=== PATIENT | female | born 1960 | race Caucasian/White ===

== ENCOUNTER 2018-03-31 06:56 | Day surgery (SDC) | payer BC, MEDICARE ==
[~2018-03-31 06:56] MED LIST: ACETAMINOPHEN 1,000 MG/100 ML BTL IV ONE; VANCOMYCIN HCL 1,000 MG in DEXTROSE 5 % IN WATER 250 ML IVPB ONE
[2018-03-31] MEDS ORDERED: HYDROCODONE/APAP 7.5/325MG TABLET PO ONE (06:57)
[2018-03-31] MEDS ORDERED: SEVOFLURANE 250 ML INH ONE (06:57)
[2018-03-31] MEDS ORDERED: BUPIVACAINE 0.5% W/EPI MPF 30 ML VIAL IVP ONE (06:57)
[2018-03-31] MEDS ORDERED: KETOROLAC 30 MG/ML VIAL IVP ONE (06:57)
[2018-03-31] MEDS ORDERED: LIDOCAINE 2% MDV (20MG/ML) 20ML VIAL IV ONE (06:57)
[2018-03-31] MEDS ORDERED: METHYLPREDNISOLONE 40MG/VIAL IM ONE (06:57)
[2018-03-31] MEDS ORDERED: PROPOFOL 10 MG/ML VIAL IV ONE (06:57)
--- NOTE | 2018-04-01 14:52 | Operative Note ---
DATE OF SURGERY: 03/31/18 PREOPERATIVE DIAGNOSIS: INTERNAL DERANGEMENT, LEFT KNEE. POSTOPERATIVE DIAGNOSES: 1. GRADE 3 CHONDROMALACIA MEDIAL FEMORAL CONDYLE. 2. COMPLEX SPLIT TEAR INVOLVING THE POSTERIOR HORN OF THE MEDIAL MENISCUS. PROCEDURE: 1. LEFT KNEE ARTHROSCOPY WITH PARTIAL MEDIAL MENISCECTOMY 2. LEFT KNEE ARTHROSCOPY WITH DEBRIDEMENT OF THE MEDIAL FEMORAL CONDYLE AND CHONDROPLASTY. STAFF SURGEON: VIRGIL CORREA M.D. ANESTHESIA: GENERAL. PREPARATION: CHLORAPREP. INDIVIDUAL CONSIDERATIONS: NONE. PROCEDURE: The patient was taken to the Operating Room and placed supine on the operating table. She had a successful induction of a general anesthetic. Her left lower extremity was prepped and draped in the usual fashion. The patient had a superolateral inflow cannula placed. The skin was infiltrated with 0.5% Marcaine with Epinephrine prior. The knee was then inflated with normal saline. An inferior medial and an inferior lateral portal were made in a similar fashion. The arthroscope was introduced through the inferior lateral portal up in the pouch. The patellofemoral compartment was normal. No significant loose bodies or synovitis was seen in the pouch or either gutter. Medially, she had grade 3 change, about the size of a quarter, over the medial femoral about 45 degrees of flexion, which was smoothed off with a shaver, some peeling cartilage in the periphery. She had a complex split tear involving the posterior horn of the medial meniscus, basically most of this was debrided out with basket forceps and a shaver to a stable rim. In the notch, the cruciates were normal and lateral compartment structures were normal. The knee was then irrigated out with saline to remove loose floating debris. The portals were closed with anastasia and 20 mL of 0.25% plain Marcaine along with 4 mg of Morphine and 40 mg DepoMedrol all were injected into the knee and a sterile Bulkee compressive dressing was applied. The patient tolerated the procedures well. Needle and sponge counts were correct. Estimated blood loss was minimal. She was taken back to Recovery in good condition. There were no complications. Dr. Eason JOB NUMBER: [id number] [facility]
== END 2018-03-31 10:45 | disposition home or self-care (01) ==
LOC: SUR 06:56
PROVIDERS: ATTEND Orthopaedic Surgery
DX: S83.232A Complex tear of medial meniscus, current injury, left knee, initial encounter (principal); M94.262 Chondromalacia, left knee; M06.9 Rheumatoid arthritis, unspecified; K52.9 Noninfective gastroenteritis and colitis, unspecified; B02.9 Zoster without complications; J45.909 Unspecified asthma, uncomplicated; J44.9 Chronic obstructive pulmonary disease, unspecified
CPT/HCPCS: 29881; 01400; J1885; J3370; J1030; J7060

== ENCOUNTER 2018-06-09 06:54 | Day surgery (SDC) | payer BC, MEDICARE ==
[2018-06-09] MEDS ORDERED: MECLIZINE 25 MG TABLET PO ONE (06:55)
[2018-06-09] MEDS ORDERED: ONDANSETRON HCL IV 4 MG/2 ML VIAL IVP ONE (06:55)
[2018-06-09] MEDS ORDERED: FAMOTIDINE 20MG TABLET PO ONE (06:55)
[2018-06-09] MEDS ORDERED: SEVOFLURANE 250 ML INH ONE ×2 (06:55)
[2018-06-09] MEDS ORDERED: METOCLOPRAMIDE 10 MG TABLET PO ONE (06:55)
[2018-06-09] MEDS ORDERED: BUPIVACAINE 0.5% W/EPI MPF 30 ML VIAL IVP ONE (06:55)
[2018-06-09] MEDS ORDERED: PROPOFOL 10 MG/ML VIAL IV ONE ×2 (06:55)
[2018-06-09] MEDS ORDERED: LIDOCAINE 2% MDV (20MG/ML) 20ML VIAL IV ONE ×2 (06:55)
[2018-06-09] MEDS ORDERED: CLINDAMYCIN 600MG/50ML PREMIX 600 MG/50 ML BAG IVPB ONE (06:55)
[2018-06-09] MEDS ORDERED: METHYLPREDNISOLONE 40MG/VIAL IM ONE (06:55)
[2018-06-09] MEDS ORDERED: MORPHINE SULFATE 4 MG/ML VIAL ONE (07:49)
--- NOTE | 2018-06-09 13:00 | Operative Note ---
DATE OF SURGERY: 06/09/2018 Surgeon: Myron Fraser MD PREOPERATIVE DIAGNOSIS: Internal derangement right knee. POSTOPERATIVE DIAGNOSES: 1. Large medial plica. 2. Grade 3 chondromalacia medial femoral condyle. 3. Complex flap tear involving the posterior horn of the medial meniscus. OPERATION: 1. Right knee arthroscopy with partial medial meniscectomy. 2. Right knee arthroscopy with resection of plica. 3. Right knee arthroscopy with chondroplasty medial femoral condyle. Anesthesia: General. PREPARATION: Chloraprep. INDIVIDUAL CONSIDERATIONS: None. PROCEDURE: The patient was taken to the operating room and placed supine on the operating room table. She had a successful induction with general anesthetic. Her right lower extremity was prepped and draped in the usual fashion. A blood-tinged effusion was drained. The knee was inflated with normal saline after an in-flow cannula was placed. The knee was then inflated with normal saline. An inferior medial and inferior lateral port were made in a similar fashion, after infiltrating with Marcaine 0.5% with epinephrine. The arthroscope was introduced through the inferolateral portal up into the pouch. The patellofemoral compartment was essentially normal with some soft change, but nothing to debride. There was a very large medial plica which was debrided with the shaver medially. She had grade 3 changes on the medial femoral condyle from 45 to 90 and this was smoothed with a shaver. She had a complex split tear involving the posterior horn of the medial meniscus. This is debrided back for a stable rim with basket forceps and a shaver. The medial and anterior horns were intact. The cruciate ligaments were normal. The lateral compartments and structures were normal. The knee was irrigated out with saline to include floating debris and closed with anastasia and 20 mL of 0.5% Marcaine with epinephrine, along with 4 mg of morphine and 40 mg of Depomedrol were injected into the knee and a sterile, bulky, compressive dressing was applied. The patient tolerated the procedure well. The needle and sponge counts were correct. Estimated blood loss was minimal. She was taken back to recovery in good condition. There were no complications. [facility]
== END 2018-06-09 10:00 | disposition home or self-care (01) ==
LOC: SUR 06:54
PROVIDERS: ATTEND Orthopaedic Surgery
DX: S83.231A Complex tear of medial meniscus, current injury, right knee, initial encounter (principal); M67.51 Plica syndrome, right knee; M94.261 Chondromalacia, right knee; M06.9 Rheumatoid arthritis, unspecified; K52.9 Noninfective gastroenteritis and colitis, unspecified; J45.909 Unspecified asthma, uncomplicated; G47.33 Obstructive sleep apnea (adult) (pediatric)
CPT/HCPCS: J1030; J2270; J2405; J7060

== ENCOUNTER 2018-11-16 09:02 | Day surgery (SDC) | payer BC, MEDICARE ==
[~2018-11-16 09:02] MED LIST changes: +CELECOXIB 100 MG CAPSULE PO ONE; +MECLIZINE 25 MG TABLET PO ONE; +METOCLOPRAMIDE 10 MG TABLET PO ONE; +PANTOPRAZOLE SODIUM 40 MG TABLET PO ONE; +VANCOMYCIN HCL 1,000 MG in 0.9 % SODIUM CHLORIDE 250ML 250 ML IVPB ONE
[2018-11-16] MEDS ORDERED: ROPIVACAINE HCL (NAROPIN) /PF 5MG/ML 20ML VIAL IV ONE (09:03)
[2018-11-16] MEDS ORDERED: ONDANSETRON HCL IV 4 MG/2 ML VIAL IVP ONE (09:03)
[2018-11-16] MEDS ORDERED: DEXAMETHASONE 4 MG/ML 1ML VIAL IVP ONE ×2 (09:03)
[2018-11-16] MEDS ORDERED: PROPOFOL 10 MG/ML VIAL IV ONE (09:03)
[2018-11-16] MEDS ORDERED: HYDROMORPHONE HCL 2 MG/ML VIAL IV ONE (09:03)
[2018-11-16] MEDS ORDERED: FAMOTIDINE 20MG TABLET PO ONE (09:03)
[2018-11-16] MEDS ORDERED: LEVOFLOXACIN 500MG IVPB 500 MG/100 ML BAG IVPB ONE (09:03)
[2018-11-16] MEDS ORDERED: TRANEXAMIC ACID 1,000 MG/10 ML ML IV ONE (09:03)
[2018-11-16] MEDS ORDERED: METOCLOPRAMIDE 10 MG TABLET PO ONE (09:03)
[2018-11-16] MEDS ORDERED: LIDOCAINE 2% MDV (20MG/ML) 20ML VIAL IV ONE (09:03)
[2018-11-16] MEDS ORDERED: MIDAZOLAM HCL 2MG/2ML VIAL IV ONE (09:03)
[2018-11-16 10:01] LABS: ABO GROUP O; ANTIBODY SCREEN NEGATIVE (NEGATIVE); RH TYPE POSITIVE
[2018-11-16] MEDS ORDERED: BUPIVACAINE 0.5% W/EPI MPF 30 ML VIAL SQ ONE (12:12)
[2018-11-16] MEDS ORDERED: RINGERS SOLUTION,LACTATED 800 ML IV ONE (12:54)
[2018-11-16] MEDS ORDERED: HYDROMORPHONE HCL 2 MG/ML VIAL IM PRN (12:59)
[2018-11-16] MEDS ORDERED: DIPHENHYDRAMINE HCL 25 MG CAPSULE PO PRN (12:59)
[2018-11-16] MEDS ORDERED: HYDROCODONE/APAP 10/325 TABLET PO PRN (12:59)
[2018-11-16] MEDS ORDERED: ONDANSETRON HCL IV 4 MG/2 ML VIAL IVP PRN (12:59)
[2018-11-16] MEDS ORDERED: ACETAMINOPHEN 325 MG TAB PO PRN (12:59)
[2018-11-16] MEDS ORDERED: ZOLPIDEM TARTRATE 5 MG TABLET PO PRN (12:59)
[2018-11-16] MEDS ORDERED: NALOXONE 0.4 MG/1 ML VIAL IVP PRN (12:59)
[2018-11-16] MEDS ORDERED: ACETAMINOPHEN W/ CODEINE 300MG/60MG TABLET PO PRN ×2 (12:59)
[2018-11-16] MEDS ORDERED: BISACODYL 10 MG SUPP RC PRN (12:59)
[2018-11-16] MEDS ORDERED: KETOROLAC 30 MG/ML VIAL IVP PRN ×2 (12:59)
[2018-11-16] MEDS ORDERED: MAGNESIUM HYDROXIDE 30 ML UDC PO PRN (12:59)
[2018-11-16] MEDS ORDERED: AL HYDROX/MAG HYDROX 30ML UD PO PRN (12:59)
[2018-11-16] MEDS ORDERED: OXYCODONE HCL 5 MG TABLET PO PRN (13:01)
[2018-11-16] MEDS ORDERED: ALBUTEROL INH PRN (14:55)
--- NOTE | 2018-11-16 16:16 | Rehab Evaluation ---
Patient Information - Patient Information Diagnosis: R knee DJD Ordered Treatment: PT Evaluate and Treat Status: Initial Evaluation Surgery: Yes (R TKA) Date of Surgery: 11/16/18 Past Medical/Surgical Hx: PAST MEDICAL/SURGICAL HISTORY Past Surgical History BILAT KNEE SCOPES shoulder sx partial hyst D and C's back sx's x's 2 lumbar c scopes EGD's PMH - Respiratory Hx Respiratory Disorders Yes Hx Asthma Yes Hx Chronic Obstructive Yes: no recent hospitalizations Pulmonary Disease (COPD) Hx Sleep Apnea Yes Hx of CPAP Yes Hx of SOB Yes: with exertion PMH - Cardiovascular Hx Cardiovascular Disorders Yes Hx Edema Yes: PT STATES "ALL OVER" Exercise Tolerance Fair Hx of Migraines Yes: occassionally PMH - Neuro Hx Neurological Disorders Yes Hx Neuropathy Yes: hands Hx of Neuromuscular Disease Yes: had a tell her she has MS Comment: shingles left side of waist onset 1 month ago still has one spot oozing PMH - GI Hx Gastrointestinal Disorders Yes Hx Abdominal Pain Yes Hx Gastroesophageal Reflux Yes Hx Irritable Bowel Yes: colitis Hx Nausea/Vomiting Yes PMH - Hx Genitourinary Disorders Yes Hx Bladder Problem Yes: stress incontinence Comment: s/p hyst PMH - Endocrine Hx Endocrine Disorders No PMH - Musculoskeletal Hx Musculoskeletal Disorders Yes Hx Arthritis Yes: RA OA PMH - Psych Hx Psychiatric Problems No Hx Anxiety Yes: VERY AGITATED ABOUT SURGERY Comment: very fragmented conversation PMH - Hematology/Oncology Hx Hematology/Oncology Yes Disorders Hx Anemia Yes: in past Premorbid Status: Detail (The patient ambulated distances occasionally with 4 wheeled walker.) Social History: Detail (The patient lives with spouse in a one story house with custom steps at the enterance(wide enough to accomodate a walker). The bathroom is equipped with a tub/solar energy installation manager combination and grab bars and an elevated toilet. The patient has a front wheeled walker, 4 wheeled walker, single point cane with wide base of support and shower bench.) Precautions: [place], Fall - Time With Patient Total Time Spent With Patient (Min): 30 Treatment Procedures: Detail (Initial Evaluation, Gait training.) Subjective Information - Subjective Information Per Patient (The patient has no complaints of pain.) Objective Data - Mental Status Patient Orientation: Oriented x3 - Visual Perception Appears within normal limits for therapeutic activities - ROM Not within normal limits (The patient's R knee AROM is limited as to be expected following surgery. The patient's other LE strength was WFL.) - Strength/Tone Not within normal limits (The patient's R LE strength was not tested s/p surgery however was functional ie: patient was able to lift R LE in and out of bed. The patient's L LE strength was functional.) - Bed Mobility Independent (The patient was independent with supine to and from sit transfer and scooting up in bed.) - Transfers Independent (The patient was independent with sit to and from stand transfer.) - Balance Balance Sitting: Good Balance Standing: Good - Sensation Intact - Gait Detail (The patient ambulated with front wheeled walker a distance of 400 feet x 1 WBAT on the R LE with supervision for safety only.) Therapy Assessment - Therapy Assessment Detail (The patient was independent with bed mobility, transfers and required supervision for safety. Feel the patient will progress well with mobility. The PT evaluation complexity is rated as low due to few personal factors and stable condition.) Problem List - Problem List Physical Therapy Problem List: Detail (1)Decreased R knee AROM as to be expected following surgery 2) Decreaed R LE strength) Goals - Goals Physical Therapy Goals: 1) The patient will be independent with TKA HEP. 2) The patient will demonstrate good understanding of proper stairclimbing technique. Prognosis - Prognosis Good Plan - Plan Physical Therapy Plan: PT 1-2 sessions for gait training and instruction in TKA HEP.
[2018-11-16] MEDS: POTASSIUM CHLORIDE/D5-0.9%NACL 20 MEQ/1,000 ML BAG IV SCH (17:41)
[2018-11-16] MEDS ORDERED: PATIENT OWN MED: GABAPENTIN 300 MG PO SCH ×2 (18:00→22:00)
[2018-11-16] MEDS: HYDROCODONE/APAP 10/325 TABLET PO PRN ×2 (19:04→23:50)
[2018-11-16] MEDS: TRAMADOL HCL 50 MG TABLET PO PRN (21:49)
[2018-11-16] MEDS: DOCUSATE SODIUM 100 MG CAPSULE PO SCH (21:49)
[2018-11-16] MEDS ORDERED: DULERA INH SCH (22:00)
[2018-11-16] MEDS: MUCINEX D PO SCH (22:01)
[2018-11-16] MEDS ORDERED: VANCOMYCIN HCL 1,000 MG in DEXTROSE 5 % IN WATER 250 ML IVPB SCH ×2 (23:00)
[2018-11-17] MEDS: POTASSIUM CHLORIDE/D5-0.9%NACL 20 MEQ/1,000 ML BAG IV SCH ×2 (03:29→06:24)
[2018-11-17] MEDS: HYDROCODONE/APAP 10/325 TABLET PO PRN ×2 (04:40→09:26)
[2018-11-17] MEDS: TRAMADOL HCL 50 MG TABLET PO PRN (06:21)
[2018-11-17 06:31] LABS: HEMATOCRIT 35.1 % (35.0-47.0); HEMOGLOBIN 11.2 gm/dl (11.6-16.0)
[2018-11-17 06:44] LABS: BLOOD UREA NITROGEN 10 mg/dL (6-20); CREATININE 0.6 mg/dL (0.5-0.9); EST GLOMERULAR FILTRATION RATE > 60 mL/min; GLUCOSE,RANDOM 94 mg/dL (74-109)
[2018-11-17] MEDS ORDERED: NEXIUM 20 MG PO SCH (07:00)
--- NOTE | 2018-11-17 08:31 | Operative Note ---
DATE OF SURGERY: 11/16/2018 PREOPERATIVE DIAGNOSIS: Rheumatoid with degenerative changes of the right knee. POSTOPERATIVE DIAGNOSIS: Rheumatoid with degenerative changes of the right knee. OPERATION: Cemented right total knee arthroplasty using Holloway and Nephew Kendy II components with a size 5 Oxinium femur, a size 4 stem tibia baseplate, a 9 mm lipped highly crosslinked tibial insert, and a 32 mm all plastic patella. Staff Surgeon: Myron Fraser MD Anesthesia: General. PREPARATION: Chloraprep. INDIVIDUAL CONSIDERATIONS: None. PROCEDURE: The patient was taken to the operating room, placed supine on the operating room table. She had a successful induction of general anesthetic. The right lower extremity was prepped and draped in the usual fashion. The limb was elevated and tourniquet was inflated to 300 mmHg. The patient had a midline approach to the knee. Sharp dissection carried down through skin and subcutaneous tissue. Small veins were coagulated with a Bovie. A medial arthrotomy was performed. The patella was everted and the knee was flexed. Fat pad was resected, ACL was sacrificed, provisional anterior meniscectomies were performed. The capsule was released from the medial proximal tibia. The patient had synovitis which was debrided in the pouch but what appeared to be more degenerative changes in the medial patellofemoral compartment. The initial femoral agricultural aircraft pilot hole was then made freehand. The intramedullary femoral cutting jig was placed. It was cut in 7.0 degrees of valgus and adjusted for rotation and secured with pins for a 10 mm resection. The initial transverse cut was then made. The skin guide was placed in the anterior and posterior agricultural aircraft pilot holes. It was found that a size 5 would be appropriate. The anterior and posterior cuts followed by chamfer cuts were made. Osteophytes removed, and a size 5 trial was placed and found to fit well. The tibia was brought forward, and the remainder of the meniscal remnants removed with a Bovie. The extraarticular tibial cutting jig was placed. It was cut in neutral with a 3-degree AP slope. It was set for a 9 mm resection keyed off the high lateral side and secured with pins. When cutting the tibia, care was taken to preserve the PCL insertion on the tibia. After removing medial osteophytes, I could fit a size 4. It was adjusted for rotation and secured with pins. With a 9 mm trial and a size 4 baseplate trial and femoral trial, there was excellent motion and stability, ligamentous balance, rotation alignment were normal. The femoral agricultural aircraft pilot holes were impacted and the tri-flange tibial stamp was impacted, and these trial components were removed. The patient had a thick patella, and roughly 9 mm of bone was removed freehand. I could easily fit a 32 patella. The 3 agricultural aircraft pilot holes were drilled. Tourniquet was let down briefly to get bleeders posteriorly and placed back up again. The knee was then copiously irrigated out with pulsatile Betadine and saline to remove any visual or palpable debris. Bony surfaces were then dried. A size 4 stem tibia baseplate was cemented into place followed by impaction of the 9 mm lipped highly crosslinked tibial insert followed by cementing in the size 5 Oxinium femur followed by cementing in the 32 mm patella. The implant surfaces were compressed, excess cement was removed, and after the cement had set, there was excellent motion and stability, ligamentous balance, rotation alignment, and patellofemoral tracking were normal. No lateral release was required. After irrigation, tourniquet was again let down. Hemostasis was obtained with a Bovie. The skin, subcutaneous tissue, and periosteum were then infiltrated with 30 mL of 0.5% Marcaine with epinephrine. The capsule was then closed with a running #2 quill, subcu was closed in layers with running 0 quill, skin was closed with anastasia. Then 20 mL of saline was mixed with 1 g of tranexamic acid and it was injected into the knee through a sterile 18-gauge needle, and a sterile bulky compressive KYLAH-type dressing was applied. The patient tolerated the procedure well. Needle and sponge counts were correct. Estimated blood loss was minimal, and she was taken back to recovery in good condition. There were no complications. JACE
--- NOTE | 2018-11-17 08:53 | Rehab Evaluation ---
Patient Information - Patient Information Diagnosis: R knee DJD Ordered Treatment: OT Evaluate and Treat Status: Initial Evaluation Surgery: Yes (R TKA) Date of Surgery: 11/16/18 Past Medical/Surgical Hx: PAST MEDICAL/SURGICAL HISTORY Past Surgical History BILAT KNEE SCOPES shoulder sx partial hyst D and C's back sx's x's 2 lumbar c scopes EGD's PMH - Respiratory Hx Respiratory Disorders Yes Hx Asthma Yes Hx Chronic Obstructive Yes: no recent hospitalizations Pulmonary Disease (COPD) Hx Sleep Apnea Yes Hx of CPAP Yes Hx of SOB Yes: with exertion PMH - Cardiovascular Hx Cardiovascular Disorders Yes Hx Edema Yes: PT STATES "ALL OVER" Exercise Tolerance Fair Hx of Migraines Yes: occassionally PMH - Neuro Hx Neurological Disorders Yes Hx Neuropathy Yes: hands Hx of Neuromuscular Disease Yes: had a tell her she has MS Comment: shingles left side of waist onset 1 month ago still has one spot oozing PMH - GI Hx Gastrointestinal Disorders Yes Hx Abdominal Pain Yes Hx Gastroesophageal Reflux Yes Hx Irritable Bowel Yes: colitis Hx Nausea/Vomiting Yes PMH - Hx Genitourinary Disorders Yes Hx Bladder Problem Yes: stress incontinence Comment: s/p hyst PMH - Endocrine Hx Endocrine Disorders No PMH - Musculoskeletal Hx Musculoskeletal Disorders Yes Hx Arthritis Yes: RA OA PMH - Psych Hx Psychiatric Problems No Hx Anxiety Yes: VERY AGITATED ABOUT SURGERY Comment: very fragmented conversation PMH - Hematology/Oncology Hx Hematology/Oncology Yes Disorders Hx Anemia Yes: in past Premorbid Status: Detail (The patient ambulated distances occasionally with 4 wheeled walker. Per Pt, spouse performs all IADLs, including meal prep, laundry , and home mgmt.) Social History: Detail (The patient lives with spouse in a one story house with custom steps at the enterance(wide enough to accomodate a walker) (vs. ramp per Pt report). The bathroom is equipped with a tub/shower combination and grab bars and an elevated toilet with grab bar. The patient has a front wheeled walker, 4 wheeled walker, single point cane with wide base of support and shower bench.) Precautions: [place], Fall, Other (WBAT R LE) - Time With Patient Total Time Spent With Patient (Min): 20 Treatment Procedures: Detail (OT eval: low complexity) Subjective Information - Subjective Information Per Patient Objective Data - Pain Pain Present: Yes Pain Scale Used: Numeric (1 - 10) (8/10 R LE) - Mental Status Patient Orientation: Oriented x3 - Visual Perception Appears within normal limits for therapeutic activities - ROM Within normal limits (Pt reports previous R shoulder Sx, however ROM and strength appears WNL) - Strength/Tone Within normal limits - Coordination Appears within normal limits for therapeutic activities - Bed Mobility Independent (supine > sit) - Transfers Independent (sit >< stand from low surfaces) - Balance Balance Sitting: Good Balance Standing: Good - Sensation Intact - Gait Detail (Functional ambulation within bedroom with FWW with supervision.) - ADL's/IADL's Detail (OT educated Pt on adaptive technique for LB dressing, Pt demos modified independence to don pants, socks, and shoes. OT educ. Pt on kitchen and laundry safety at home, Pt verbalizes understanding.) Therapy Assessment - Therapy Assessment Detail (Pt demos safety and modified independence with LB dressing and verbalizes safe technique for safety with home tasks.) Problem List - Problem List Physical Therapy Problem List: Detail (1)Decreased R knee AROM as to be expected following surgery 2) Decreaed R LE strength) Occupational Therapy Problem List: Detail (No inpatient OT needs identified. DC inpatient OT services.) Goals - Goals Physical Therapy Goals: 1) The patient will be independent with TKA HEP. 2) The patient will demonstrate good understanding of proper stairclimbing technique. Occupational Therapy Goals: No further OT inpatient needs/goals identified. Prognosis - Prognosis Good Plan - Plan Physical Therapy Plan: PT 1-2 sessions for gait training and instruction in TKA HEP. Occupational Therapy Plan: No further inpatient OT needs identified, DC OT services. Thank you for this referral.
[2018-11-17] MEDS: DOCUSATE SODIUM 100 MG CAPSULE PO SCH (09:17)
[2018-11-17] MEDS: MUCINEX D PO SCH (09:21)
[2018-11-17] MEDS ORDERED: PATIENT OWN MED: AMITIZA 24 MCG PO SCH (10:00)
[2018-11-17] MEDS ORDERED: RIVAROXABAN 10 MG TABLET PO SCH (10:00)
[2018-11-17] MEDS ORDERED: XYZAL 5 MG PO SCH (10:00)
[2018-11-17] MEDS ORDERED: PATIENT OWN MED: FOLIC ACID 1 MG PO SCH (10:00)
[2018-11-17] MEDS ORDERED: FERROUS SULFATE 325 MG TAB PO SCH (10:00)
--- NOTE | 2018-11-17 10:50 | Physical Therapy Tx Note ---
Physical Therapy Tx Note - Treatment Note Tolerated: Good Total Time Spent With Patient: 20 Physical Therapy Tx Note: Detail (The patient was sitting on the edge of bed when PT arrived. The patient completed TKA HEP including: seated and supine heel slides,ankle pumps, quad sets, gluteal sets, hamstring sets and SLR. The patient was able to verbalize the proper technique for stair climbing. The patient declined stairclimbing stating she is unable to climb regular stairs due to back pain. The patient has curb type of steps at home. The patient has met all PT goals and is discharged from inpatient PT. The patient is to continue with Home PT.) Physical Therapy Problem List: Detail (1)Decreased R knee AROM as to be expected following surgery 2) Decreaed R LE strength) Physical Therapy Goals: 1) The patient will be independent with TKA HEP. (Goal Met). 2) The patient will demonstrate good understanding of proper stairclimbing technique.(Goal Met) Physical Therapy Plan: The patient has met all inpatient PT goals and is discharged from inpatient PT. The patient is to receive Home PT.
== END 2018-11-17 10:05 | disposition home or self-care (01) ==
LOC: SUR 09:02 → MEDSURG 14:19 → SUR 11-17 10:05
PROVIDERS: ATTEND Orthopaedic Surgery
DX: M17.9 Osteoarthritis of knee, unspecified (principal); M06.9 Rheumatoid arthritis, unspecified; K52.9 Noninfective gastroenteritis and colitis, unspecified; K21.9 Gastro-esophageal reflux disease without esophagitis; J45.909 Unspecified asthma, uncomplicated; G47.33 Obstructive sleep apnea (adult) (pediatric)
CPT/HCPCS: 27447; 01402; 64447; 85018; 85014; 80048; 86900; 86901; 86850; 94640; J2405; J3370; J1170; J3490 ×3; J2795; 76942; 97110; C1776; J1956; J3480; J7060; J7120

== ENCOUNTER 2019-06-07 06:30 | Day surgery (SDC) | payer BC, MEDICARE ==
[~2019-06-07 06:30] MED LIST changes: -ACETAMINOPHEN 1,000 MG/100 ML BTL IV ONE; +FAMOTIDINE 20MG TABLET PO ONE; -PANTOPRAZOLE SODIUM 40 MG TABLET PO ONE; +VANCOMYCIN 1GM/200ML PREMIX 1 GM/200 ML PIGGYBACK IVPB ONE; -VANCOMYCIN HCL 1,000 MG in 0.9 % SODIUM CHLORIDE 250ML 250 ML IVPB ONE; -VANCOMYCIN HCL 1,000 MG in DEXTROSE 5 % IN WATER 250 ML IVPB ONE
[2019-06-07] MEDS ORDERED: MAGNESIUM SULFATE 8 MEQ(1GM)/2ML VIAL IV ONE (06:31)
[2019-06-07] MEDS ORDERED: LIDOCAINE 2% MDV (20MG/ML) 20ML VIAL IV ONE (06:31)
[2019-06-07] MEDS ORDERED: MIDAZOLAM HCL 2MG/2ML VIAL IV ONE (06:31)
[2019-06-07] MEDS ORDERED: *PACU ONLY* KETAMINE HCL 10 MG/ML (20ML) VIAL IV ONE (06:31)
[2019-06-07] MEDS ORDERED: DEXAMETHASONE 4 MG/ML 1ML VIAL IVP ONE (06:31)
[2019-06-07] MEDS ORDERED: KETOROLAC 30 MG/ML VIAL IVP ONE (06:31)
[2019-06-07] MEDS ORDERED: ROPIVACAINE HCL (NAROPIN) /PF 5MG/ML 20ML VIAL IV ONE (06:31)
[2019-06-07] MEDS ORDERED: GLYCOPYRROLATE 0.2 MG/ML ML IV ONE (06:31)
[2019-06-07] MEDS ORDERED: PROPOFOL 10 MG/ML VIAL IV ONE (06:31)
[2019-06-07] MEDS ORDERED: RINGERS SOLUTION,LACTATED 1,000 ML IV ONE ×2 (07:10→09:30)
[2019-06-07 07:26] LABS: ABO GROUP O; ANTIBODY SCREEN NEGATIVE (NEGATIVE); RH TYPE POSITIVE
[2019-06-07] MEDS ORDERED: BUPIVACAINE 0.5% W/EPI MPF 30 ML VIAL IU ONE (09:18)
[2019-06-07] MEDS ORDERED: BUPIVACAINE 0.5% W/EPI MPF 30 ML VIAL SQ ONE (09:18)
[2019-06-07] MEDS ORDERED: TRANEXAMIC ACID 1,000 MG/10 ML ML IU ONE (09:18)
[2019-06-07] MEDS ORDERED: TRANEXAMIC ACID 1,000 MG/10 ML ML IV ONE (09:27)
[2019-06-07] MEDS ORDERED: GENTAMICIN SULFATE 560 MG in 0.9 % SODIUM CHLORIDE 100ML 100 ML IV ONE (09:45)
[2019-06-07] MEDS ORDERED: HYDROMORPHONE HCL 2 MG/ML VIAL IVP ONE (10:53)
[2019-06-07] MEDS ORDERED: HYDROMORPHONE HCL 2 MG/ML VIAL IM ONE (10:53)
[2019-06-07] MEDS ORDERED: ACETAMINOPHEN 1,000 MG/100 ML BTL IVPB ONE (11:00)
[2019-06-07] MEDS ORDERED: ALBUTEROL HFA 8 GM INHALER INH PRN (12:39)
[2019-06-07] MEDS ORDERED: PREDNISONE 5 MG TAB PO PRN (12:40)
[2019-06-07] MEDS ORDERED: GABAPENTIN 300 MG CAPSULE PO SCH ×2 (14:00→22:00)
[2019-06-07] MEDS ORDERED: KETOROLAC 30 MG/ML VIAL IVP PRN (14:22)
[2019-06-07] MEDS ORDERED: MAGNESIUM HYDROXIDE 30 ML UDC PO PRN (14:22)
[2019-06-07] MEDS ORDERED: HYDROCODONE/APAP 10/325 TABLET PO PRN (14:22)
[2019-06-07] MEDS ORDERED: TRAMADOL HCL 50 MG TABLET PO PRN (14:22)
[2019-06-07] MEDS ORDERED: ACETAMINOPHEN 325 MG TAB PO PRN (14:22)
[2019-06-07] MEDS ORDERED: ONDANSETRON HCL IV 4 MG/2 ML VIAL IVP PRN (14:22)
[2019-06-07] MEDS ORDERED: BISACODYL 10 MG SUPP RC PRN (14:22)
[2019-06-07] MEDS ORDERED: DIPHENHYDRAMINE HCL 25 MG CAPSULE PO PRN (14:22)
[2019-06-07] MEDS ORDERED: ACETAMINOPHEN W/ CODEINE 300MG/60MG TABLET PO PRN ×2 (14:22)
[2019-06-07] MEDS ORDERED: AL HYDROX/MAG HYDROX 30ML UD PO PRN (14:22)
[2019-06-07] MEDS ORDERED: NALOXONE 0.4 MG/1 ML VIAL IVP PRN (14:22)
[2019-06-07] MEDS ORDERED: ZOLPIDEM TARTRATE 5 MG TABLET PO PRN (14:22)
[2019-06-07] MEDS ORDERED: HYDROMORPHONE HCL 2 MG/ML VIAL IM PRN (14:22)
[2019-06-07] MEDS: HYDROCODONE/APAP 10/325 TABLET PO PRN (14:39)
--- NOTE | 2019-06-07 14:40 | Rehab Evaluation ---
Patient Information - Patient Information Diagnosis: L knee DJD Ordered Treatment: PT Evaluate and Treat Status: Initial Evaluation Surgery: Yes (L TKA) Date of Surgery: 06/07/19 Past Medical/Surgical Hx: PAST MEDICAL/SURGICAL HISTORY Surgery to Affected Area? No Recent Surgery? Past Surgical History RTKA 11-16-18 BILAT KNEE SCOPES shoulder sx partial hyst D and C's back sx's x's 2 lumbar c scopes EGD's PMH - Respiratory Hx Respiratory Disorders Yes Hx Asthma Yes: A LITTLE MORE CONGESTION LATELY D/T FALL WEATHER Hx Chronic Obstructive Yes: no recent hospitalizations Pulmonary Disease (COPD) Hx Sleep Apnea Yes Hx of CPAP Yes Hx of SOB Yes: with exertion PMH - Cardiovascular Hx Cardiovascular Disorders Yes Hx Edema Yes: LE Exercise Tolerance Fair Hx of Migraines Yes: occassionally PMH - Neuro Hx Neurological Disorders Yes Hx Neuropathy Yes: hands Hx of Neuromuscular Disease Yes: had a tell her she has MS Comment: HX SHINGLES PMH - GI Hx Gastrointestinal Disorders Yes Hx Abdominal Pain Yes Hx Gastroesophageal Reflux Yes Hx Irritable Bowel Yes: colitis Hx Nausea/Vomiting Yes PMH - Hx Genitourinary Disorders Yes Hx Bladder Problem Yes: stress incontinence Comment: s/p hyst PMH - Endocrine Hx Endocrine Disorders No PMH - Musculoskeletal Hx Musculoskeletal Disorders Yes Hx Arthritis Yes: RA OA PMH - Psych Hx Psychiatric Problems No Comment: very fragmented conversation PMH - Hematology/Oncology Hx Hematology/Oncology Yes Disorders Hx Anemia Yes: in past Premorbid Status: Detail (The patient was independent with all mobility prior to surgery.) Social History: Detail (The pt. lives with spouse in a one story house with a ramp. Pt. has stairs to basement to do laundry. The bathroom is equipped with a tub/shower combination, shower bench, elevated toilet. Grab bars are present by toilet and tub. The patient has a walker with wheels and a standard cane.) Precautions: [place], Fall, Other (WBAT on the L LE.) - Time With Patient Total Time Spent With Patient (Min): 30 Treatment Procedures: Detail (Initial Eval low complexity.) Subjective Information - Subjective Information Per Patient (The patient had no complaints of pain.) Objective Data - Mental Status Patient Orientation: Oriented x3 - Visual Perception Appears within normal limits for therapeutic activities - ROM Not within normal limits (The patient's L knee is limited s/p surgery. All other AROM is WNL.) - Strength/Tone Not within normal limits (The patient's LE strength was not tested s/p surgery but was WFL.) - Transfers Independent (The patient was independent with sit to and from stand transfer.) - Balance Balance Sitting: Good Balance Standing: Good - Sensation Intact - Gait Detail (The patient ambulated 300 feet plus with front wheeled walker with supervision for safety WBAT on the L LE.) Therapy Assessment - Therapy Assessment Detail (The patient was independent with transfers and ambulation. Anticipate the patient will meet inpt. PT goals in one to two sessions.) Problem List - Problem List Physical Therapy Problem List: Detail (Decreased L knee AROM and L LE strength s/p surgery.) Goals - Goals Physical Therapy Goals: 1) The patient will be independent with bed mobility. 2) The patient will demonstrate good understanding of ambulation on stairs. 3) The patient will be independent with TKA HEP. Prognosis - Prognosis Good Plan - Plan Physical Therapy Plan: PT 1-2 sessions for instruction in HEP and bed mobility and gait training.
[2019-06-07] MEDS ORDERED: POTASSIUM CHLORIDE/D5-0.9%NACL 20 MEQ/1,000 ML BAG IV SCH (15:30)
[2019-06-07] MEDS: GABAPENTIN 300 MG CAPSULE PO SCH (18:21)
[2019-06-07] MEDS ORDERED: RIVAROXABAN 10 MG TABLET PO SCH (18:30)
[2019-06-07] MEDS: VANCOMYCIN 1GM/200ML PREMIX 1 GM/200 ML PIGGYBACK IVPB SCH (19:23)
[2019-06-07] MEDS: DOCUSATE SODIUM 100 MG CAPSULE PO SCH (21:28)
[2019-06-07] MEDS: MUCINEX DM PO SCH (21:29)
[2019-06-07] MEDS ORDERED: XYZAL 5MG PO SCH (22:00)
[2019-06-08] MEDS: HYDROCODONE/APAP 10/325 TABLET PO PRN ×3 (01:14→09:19)
[2019-06-08] MEDS: VANCOMYCIN 1GM/200ML PREMIX 1 GM/200 ML PIGGYBACK IVPB SCH (06:49)
[2019-06-08 06:50] LABS: HEMATOCRIT 35.4 % (35.0-47.0); HEMOGLOBIN 11.1 gm/dl (11.6-16.0)
[2019-06-08] MEDS ORDERED: PANTOPRAZOLE SODIUM 40 MG TABLET PO SCH (07:00)
[2019-06-08 07:02] LABS: BLOOD UREA NITROGEN 14 mg/dL (6-20); CREATININE 0.6 mg/dL (0.5-0.9); EST GLOMERULAR FILTRATION RATE > 60 mL/min; GLUCOSE,RANDOM 126 mg/dL (74-109)
[2019-06-08] MEDS: GABAPENTIN 300 MG CAPSULE PO SCH (09:15)
[2019-06-08] MEDS: DOCUSATE SODIUM 100 MG CAPSULE PO SCH (09:15)
[2019-06-08] MEDS: MUCINEX DM PO SCH (09:16)
[2019-06-08] MEDS ORDERED: FERROUS SULFATE 325 MG TAB PO SCH (10:00)
[2019-06-08] MEDS ORDERED: BREO (FLUTICASONE/VILANTEROL) 200MCG/25MCG INHALER INH SCH (10:00)
[2019-06-08] MEDS ORDERED: AMITIZA 24MCG PO SCH (10:00)
[2019-06-08] MEDS ORDERED: FOLIC ACID 1 MG TABLET PO SCH (10:00)
--- NOTE | 2019-06-08 10:50 | Operative Note ---
DATE OF SURGERY: 06/07/2019 PREOPERATIVE DIAGNOSIS: Arthrofibrosis of the right knee. POSTOPERATIVE DIAGNOSIS: Arthrofibrosis of the right knee. OPERATION: 1. Right knee manipulation under anesthesia. 2. Right knee injection. STAFF SURGEON: Myron Fraser MD ANESTHESIA: Spinal. PREPARATION: Chloraprep. INDIVIDUAL CONSIDERATIONS: None. PROCEDURE: The patient was taken to the operating room, placed supine on the operating room table. She had a successful induction of a spinal anesthetic. I went ahead and manipulated the right knee and got it to full extension and was able to flex it to 130 degrees. [place] resistance at maybe 110. I then prepped superolaterally and then injected sterilely 10 mL of 0.5% Marcaine with epinephrine and 40 mg of Depo-Medrol and a Band-Aid was applied. At this point, her left knee was prepped and draped for her knee replacement, which was dictated in a separate note. JACE
--- NOTE | 2019-06-08 10:50 | Operative Note ---
DATE OF SURGERY: 06/07/2019 PREOPERATIVE DIAGNOSIS: Rheumatoid arthritis of the left knee. POSTOPERATIVE DIAGNOSIS: Rheumatoid arthritis of the left knee. OPERATION: Cemented left total knee arthroplasty using Holloway [employer] Nephew Kendy II components with a size 5 Oxinium femur, a size 4 stemmed tibia baseplate, a 13 mm lipped highly crosslinked tibial insert, and a 32 mm all-plastic patella. STAFF SURGEON: Myron Fraser MD ANESTHESIA: General. PREPARATION: Chloraprep. INDIVIDUAL CONSIDERATIONS: None. PROCEDURE: The patient was taken to the operating room, placed supine on the operating room table. The patient had a successful induction of a spinal anesthetic. The left lower extremity was prepped and draped in the usual fashion. The limb was elevated and tourniquet was inflated to 250 mmHg. The patient had a midline approach to the knee. Sharp dissection carried down through skin and subcutaneous tissue. Small veins were coagulated with a Bovie. A medial arthrotomy was performed. The patella was everted and the knee was flexed. The patient had exposed bone in the medial and patellofemoral compartments. Fat pad was resected, ACL was sacrificed, and provisional anterior meniscectomies were performed. The capsule was released from the medial proximal tibia. The initial femoral airplane pilot supervisor hole was then made freehand. The intramedullary femoral cutting jig was placed. It was cut in 7.0 degrees of valgus and adjusted for rotation and secured with pins for a 10 mm resection. The initial transverse cut was then made. The skin guide was placed in the anterior and posterior airplane pilot supervisor holes. It was found that a size 5 would be appropriate. The anterior and posterior cuts followed by chamfer cuts were made. Osteophytes removed, and a size 5 trial was placed and found to fit well. The tibia was brought forward, and the remainder of the meniscal remnants removed with a Bovie. The extraarticular tibial cutting jig was placed. It was cut in neutral with a 3-degree AP slope. It was set for a 9 mm resection keyed off the high lateral side and secured with pins. When cutting the tibia, care was taken to preserve the PCL insertion on the tibia. After removing osteophytes, I could fit a size 4. It was adjusted for rotation and secured with pins. With a 13 mm trial and femoral trial, there was excellent motion and stability. Ligamentous balance and rotation alignment were thought to be normal. Femoral airplane pilot supervisor holes were impacted and the femoral keel stamp was impacted, and these trial components were removed. The patient had a relatively thick patella measuring about 24 mm, certainly sufficient for resurfacing. Roughly 9 mm of bone was removed freehand. I was easily able to fit a 32 patella. The 3 airplane pilot supervisor holes were drilled. The tourniquet was let down briefly to get bleeders posteriorly and then placed back up again. The knee was then copiously irrigated out with pulsatile Betadine and saline to remove any visual or palpable debris. Bony surfaces were then dried. A size 4 stemmed tibia baseplate was cemented into place followed by impaction of the 13 mm lipped tibial insert followed by cementing in the size 5 Oxinium femur followed by cementing in the 32 mm patella. The implant surfaces were compressed, excess cement was removed. After the cement had set, there was excellent motion and stability. Ligamentous balance, rotation alignment, and patellofemoral tracking were normal. No lateral release was required. Tourniquet was let down. Hemostasis was obtained with a Bovie. Final irrigation. The periosteum, skin, and subcu were infiltrated with 30 mL of 0.5% Marcaine with epinephrine. The capsule was then closed with a running #2 quill, subcu was closed in layers with running 0 quill, skin was closed with anastasia. The patient had 1 g of tranexamic acid given IV preoperatively. We mixed 1 g of tranexamic acid with 30 mL of saline and injected into the knee through a sterile 18-gauge needle, and a sterile bulky compressive KYLAH-type dressing was applied. The patient tolerated the procedure well. Needle and sponge counts were correct. Estimated blood loss was minimal, and she was taken back to recovery in good condition. There were no complications. JACE
--- NOTE | 2019-06-08 11:13 | Physical Therapy Tx Note ---
Physical Therapy Tx Note - Treatment Note Tolerated: Good Total Time Spent With Patient: 30 Physical Therapy Tx Note: Detail (Patient was sitting in chair upon UI ENGINEER arrival. Patient transferred sit to and from stand SBA x1. Patient ambulated 686 feet with wheeled walker CGA/SBA x1. Patient ascended and descended 5 steps with using stairwell railings. Patient performed the following exercises seated in chair x5-10 reps each: quad sets, glut squeezes, heel slides, ankle pumps, SLR, and hamstring sets. Patient tolerated treatment well. Patient was left seated in chair with cyro and call light within reach. Patient displays good understanding of ambulation, stair climbing, and HEP. Patient discharged from inpatient PT at this time as all goals are met.) Physical Therapy Problem List: Detail (Decreased L knee AROM and L LE strength s/p surgery.) Physical Therapy Goals: 1) The patient will be independent with bed mobility. Met. 2) The patient will demonstrate good understanding of ambulation on stairs. Met. 3) The patient will be independent with TKA HEP. Met. Prognosis: Good Physical Therapy Plan: Patient discharged from inpatient PT at this time as all goals are met.
--- NOTE | 2019-06-08 11:58 | Rehab Evaluation ---
Patient Information - Patient Information Diagnosis: L knee DJD Ordered Treatment: OT Evaluate and Treat Status: Initial Evaluation Surgery: Yes (L TKA) Date of Surgery: 06/07/19 History: Detail (The Pt had a R TKA within the past 6 months and also had this manipulated during the current Sx. She also has a history of back problems with multiple surgeries, a R shld Sx, and plans to have a L total shld replacement in the near future.) Past Medical/Surgical Hx: PAST MEDICAL/SURGICAL HISTORY Surgery to Affected Area? No Recent Surgery? Past Surgical History RTKA 11-16-18 BILAT KNEE SCOPES shoulder sx partial hyst D and C's back sx's x's 2 lumbar c scopes EGD's PMH - Respiratory Hx Respiratory Disorders Yes Hx Asthma Yes: A LITTLE MORE CONGESTION LATELY D/T FALL WEATHER Hx Chronic Obstructive Yes: no recent hospitalizations Pulmonary Disease (COPD) Hx Sleep Apnea Yes Hx of CPAP Yes Hx of SOB Yes: with exertion PMH - Cardiovascular Hx Cardiovascular Disorders Yes Hx Edema Yes: LE Exercise Tolerance Fair Hx of Migraines Yes: occassionally PMH - Neuro Hx Neurological Disorders Yes Hx Neuropathy Yes: hands Hx of Neuromuscular Disease Yes: had a tell her she has MS Comment: HX SHINGLES PMH - GI Hx Gastrointestinal Disorders Yes Hx Abdominal Pain Yes Hx Gastroesophageal Reflux Yes Hx Irritable Bowel Yes: colitis Hx Nausea/Vomiting Yes PMH - Hx Genitourinary Disorders Yes Hx Bladder Problem Yes: stress incontinence Comment: s/p hyst PMH - Endocrine Hx Endocrine Disorders No PMH - Musculoskeletal Hx Musculoskeletal Disorders Yes Hx Arthritis Yes: RA OA PMH - Psych Hx Psychiatric Problems No Comment: very fragmented conversation PMH - Hematology/Oncology Hx Hematology/Oncology Yes Disorders Hx Anemia Yes: in past Premorbid Status: Detail (The patient was independent with all ADLs and functional mobility prior to surgery.) Social History: Detail (The Pt lives with spouse in a one story house with a ramp. Pt has stairs to basement to do laundry. The bathroom is equipped with a tub/shower combination, shower bench, hand-held shower hose, and elevated toilet. Grab bars are present by toilet and tub. The patient has a FWW and standard cane. She typically uses a 4WW at baseline.) Precautions: [place], Fall, Other (WBAT on the L LE.) - Time With Patient Total Time Spent With Patient (Min): 25 (OT eval low complexity) Subjective Information - Subjective Information Per Patient (Ok to see per BENEDICT Rogers. Pt states, "Both of my knees hurts, but I think I'm doing better than last TKA.") Objective Data - Pain Pain Present: Yes Pain Scale Used: Numeric (1 - 10) (5/10 L knee) - Mental Status Patient Orientation: Oriented x3 - Visual Perception Appears within normal limits for therapeutic activities - ROM Within normal limits (B UE WFL) - Strength/Tone Other (Not tested d/t bilateral shoulder pain, R previous replacement, L needing replacement per Pt.) - Coordination Appears within normal limits for therapeutic activities - Transfers Independent (Sit to/from stand to FWW from BS chair and BSC over toilet, no LOB, good- balance, minimal support on walker.) - Balance Balance Sitting: Good Balance Standing: Good, Fair - Sensation Intact - Gait Detail (Fxl mobility within bedroom with FWW with Good balance, without LOB. Verbal instructions and demo safe use of walker, continues to require v/c for safe use as Pt abandons walker often, stating she doesn't need it.) - ADL's/IADL's Detail (OT educated Pt on modified technique for LB dressing and Pt demos understanding to don/doff underwear, pants, socks, and shoes. Pt verbalizes beverly hose wearing schedule and verbalizes understanding of modified techs to don socks. OT educates Pt on kitchen, laundry, and bathroom safety, Pt verbalizes understanding.) Therapy Assessment - Therapy Assessment Detail (Pt tolerates eval well, appears more safe and independent than last TKA per therapist observation, demos safety and MOD I with LB dressing, verbalizes safe technique for home tasks with good safety awareness. Pt reports spouse assists at home as needed. Rec. home DCP when medically ready.) Patient Education - Patient Education Teaching Topic: Other (modified techniques for ADLs) Response: Return Demonstration, Verbalize Understanding Teaching Method: Discussion, Demonstration Teaching Recipient: Patient Barriers To Learning: None Problem List - Problem List Physical Therapy Problem List: Detail (Decreased L knee AROM and L LE strength s/p surgery.) Occupational Therapy Problem List: Detail (No further skilled IP OT needs identified.) Goals - Goals Physical Therapy Goals: 1) The patient will be independent with bed mobility. Met. 2) The patient will demonstrate good understanding of ambulation on stairs. Met. 3) The patient will be independent with TKA HEP. Met. Occupational Therapy Goals: No further skilled IP OT needs/goals identified. Prognosis - Prognosis Good Plan - Plan Physical Therapy Plan: Patient discharged from inpatient PT at this time as all goals are met. Occupational Therapy Plan: No further skilled IP OT needs/goals identified. SD IP OT services. Thank you for this referral.
== END 2019-06-08 11:20 | disposition home or self-care (01) ==
LOC: SUR 06:30 → MEDSURG 11:30 → SUR 06-08 11:20
PROVIDERS: ATTEND Orthopaedic Surgery
DX: M06.062 Rheumatoid arthritis without rheumatoid factor, left knee (principal); M24.661 Ankylosis, right knee; M06.9 Rheumatoid arthritis, unspecified; K21.9 Gastro-esophageal reflux disease without esophagitis; J45.909 Unspecified asthma, uncomplicated; E66.9 Obesity, unspecified
CPT/HCPCS: 27447; 01402; 64447; 27570; 20610; 01380; 85018; 85014; 80048; 86900; 86901; 86850; 94640; J1885; J2405; J1170; J3490 ×2; J2795; J3370 ×2; 76942; J7120